=== PATIENT | female | born 1935 | race Caucasian/White ===

== ENCOUNTER → 2018-07-01 10:12 | Outpatient (CLI) | payer MEDICARE, OTHER, SELFPAY ==
--- NOTE | 2018-07-01 | DI.MRI.S_ITS ---
PROCEDURE: MR KNEE LT WO CON INDICATIONS: LEFT KNEE PAIN TECHNIQUE: Noncontrast sagittal PD fast spin echo and T2 fast spin echo with fat saturation, sagittal 3-D FLASH with fat saturation; coronal T1 spin echo and PD fast spin echo with fat saturation, and axial PD fast spin echo with fat saturation through the knee. COMPARISON: None. FINDINGS: Image quality: Excellent. Menisci: There is degenerative fraying of the free edge of the medial meniscus. Superimposed amorphous high signal intensity within the medial meniscal body and posterior horn is present with inferior articular surface extension. Radial tearing of the free edge of the anterior horn medial meniscus is present. Lateral meniscus is intact. Cruciate ligaments: The anterior and posterior cruciate ligaments appear intact. Medial structures: The medial collateral ligament appears intact. Visualized portions of the pes anserinus tendons appear normal. Mild T2 signal elevation within and adjacent to the tibial insertion of the semimembranosus. No abnormal bursal fluid. Lateral structures: The lateral collateral ligament, long and short heads of the biceps femoris tendon appear intact. The popliteus tendon appears normal. Iliotibial band appears normal. Anterior structures: The quadriceps and patellar tendons appear intact. Patellar alignment is normal. No femoral trochlear dysplasia or ventral trochlear prominence. No edema in the infrapatellar fat pad. Bones and cartilage: Mild tricompartmental periarticular osteophyte formation is present. No bone marrow contusions or fractures. A few small intraosseous ganglia within the patellar apex and adjacent lateral patellar facet are present, with severe overlying articular cartilage loss. Severe diffuse articular cartilage loss overlies the weightbearing aspects of the medial femoral condyle and medial tibial plateau with mild underlying ill-defined degenerative marrow edema within the medial femoral condyle and medial tibial plateau. Mild diffuse articular cartilage loss overlies the weightbearing aspects of the lateral femoral condyle and lateral tibial plateau. Joint space: There is a small knee joint effusion and no Jett's cyst. There is a small ganglion cyst along the popliteus. Normal appearing synovial plicae are incidentally noted. IMPRESSION: 1. Medial meniscal tearing. 2. 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 3. Small knee joint effusion. Small ganglion cyst along the popliteus. 4. Insertional tendinitis of the semimembranosus. Dictated by: Gita Ornelas M.D. on 07/01/2018 at 11:33 Approved by: Gita Ornelas M.D. on 07/01/2018 at 11:37
== END ==
PROVIDERS: Visit Provider Orthopaedic Surgery
DX: M17.12 Unilateral primary osteoarthritis, left knee (principal); S83.242A Other tear of medial meniscus, current injury, left knee, initial encounter; M25.462 Effusion, left knee; M67.462 Ganglion, left knee; M76.822 Posterior tibial tendinitis, left leg
CPT/HCPCS: 73721

== ENCOUNTER → 2018-08-14 14:36 | Outpatient (CLI) | payer MEDICARE, OTHER, SELFPAY ==
[2018-08-14 14:46] LABS: Bacteria Urine None Seen
[2018-08-14 16:04] LABS: Appearance Urine UA CLEAR; Bilirubin Urine UA NEGATIVE (NEGATIVE); Color Urine UA YELLOW; Glucose Urine UA NEGATIVE (Normal); Ketones Urine UA TRACE (NEGATIVE); Leukocyte Esterase Urine UA NEGATIVE (NEGATIVE); Nitrite Urine UA NEGATIVE (Negative); Occult Blood Urine UA TRACE-LYSED (Negative); Protein Urine UA NEGATIVE (Negative); Specific Gravity Urine UA 1.015 (1.000-1.035); Urobilinogen Urine UA 0.2 E.U./dL (0.2)
[2018-08-14 16:07] LABS: Add Manual Diff / Slide Review NO; Hematocrit 42.9 % (36-46); Hemoglobin 14.3 g/dL (12.0-16.0); Mean Corpuscular HGB Conc 33.4 % (30-36); Mean Corpuscular Hemoglobin 32.3 PG (26-34); Monocytes Percent Auto 8.7 % (3-14); Neutrophils Absolute Auto 3900 /uL (3000-5900); Neutrophils Percent Auto 62.3 % (50-75); Platelet Count 313 X10^3/uL (150-400); Red Blood Cell Count 4.42 X10^6/uL (4.0-5.2); Red Cell Distribution Width 13.2 % (11.6-14.8); White Blood Cell Count 6.2 X10^3/uL (4.5-11.0)
[2018-08-14 16:12] LABS: Hemoglobin A1C% w Est Avg Glu 5.3 % (4.0-6.0)
[2018-08-14 16:28] LABS: BUN Creatinine Ratio 18.9 (6-22); Blood Urea Nitrogen 17 mg/dL (7-17); Carbon Dioxide 30 mmol/L (22-32); Chloride 102 mmol/L (98-107); Estimated Glomerular Filt Rate 59.7 mL/min (>60); Glucose 93 mg/dL (80-110); HEMOLYSIS < 15 (0-50); Sodium 144 mmol/L (137-145)
[2018-08-14 16:32] LABS: Potassium 5.4 mmol/L (3.4-5.1)
[2018-08-14 16:37] LABS: RBC Urine 0-1/HPF (0-5/HPF)
[2018-08-14 16:38] LABS: Culture Indicated Urine Cult Not Indicated; Squamous Epithelial Cell Urine None Seen; Urine Comments Microscopic Normal; WBC Urine 0-1/HPF (0-5/HPF)
== END ==
PROVIDERS: Family Provider Family Medicine; PCP Family Medicine; Visit Provider Orthopaedic Surgery
DX: Z01.812 Encounter for preprocedural laboratory examination (principal); N39.9 Disorder of urinary system, unspecified; R73.09 Other abnormal glucose
CPT/HCPCS: 36415; 80048; 81001; 83036; 85025; 93005; 93010